=== PATIENT | male | born 2000 | race Caucasian/White ===

== ENCOUNTER 2021-02-25 17:38 | Emergency (ER) | payer OTHER, MEDICAID, SELFPAY ==
[2021-02-25] VITALS (10 sets, daily range): BP systolic 109–160; BP diastolic 61–87; PULSE 45–78; RESP 12–24; TEMP 36.5; O2SAT 94–100
--- NOTE | 2021-02-25 20:52 | ED.ABDPAIN ---
HPI - Abdominal Pain General Chief Complaint: Abdominal Pain Stated Complaint: not feeling well Time Seen by Provider: 02/25/21 20:52 Source: patient Mode of arrival: Wheelchair Limitations: no limitations History of Present Illness HPI narrative: The patient was transferred to [facility] for an abscess near his spine several weeks ago. He was treated surgically and with antibiotics, he was discharged from [facility] 3 weeks ago. He has had persistent diarrhea since discharge from [facility]. He developed nausea and vomiting today. he has not vomited for the last 2 hours. He has no fever, URI symptoms, or cough. He has no abdominal pain. He has no urinary complaints. Related Data Previous Rx's Medication Instructions Recorded ondansetron 4 mg PO Q4H PRN #10 tab 02/25/21 Allergies Allergy/AdvReac Type Severity Reaction Status Date / Time No Known Drug Allergies Allergy Verified 02/25/21 17:50 Review of Systems ENT Ears, Nose, Mouth, and Throat: Denies dizziness, Denies sinus pressure and Denies sore throat Cardiovascular Cardiovascular: Denies chest pain, Denies lightheadedness, Denies dyspnea and Denies dyspnea on exertion Respiratory Respiratory: Denies cough, Denies dyspnea, Denies dyspnea on exertion and Denies wheezing Gastrointestinal Gastrointestinal: Denies abdominal pain, Denies diarrhea, Denies nausea and Denies vomiting Genitourinary Genitourinary: Denies dysuria Genitourinary: Denies dysuria Musculoskeletal Musculoskeletal: Denies back pain, Denies myalgias and Denies numbness Integumentary/Breasts Skin/Breast: Denies rash Neurologic Neurologic: Denies dizziness and Denies numbness Allergic/Immunologic Allergic/Immunologic: Denies wheezing Patient History Medical History (Updated 02/26/21 @ 04:56 by Haris Pena MD) No active medical problems Postoperative intra-abdominal abscess Social History Smoking Status: Current every day smoker Smoking Status: Current every day smoker Substance Use Type: marijuana, heroin and methamphetamine Exam Initial Vital Signs Initial Vital Signs: Vital Signs Pulse Rate 49 L 02/25/21 17:41 Respiratory Rate 22 02/25/21 17:41 Blood Pressure 160/83 H 02/25/21 17:41 Pulse Oximetry 97 02/25/21 17:41 Const General: cooperative, healthy appearing and comfortable [facility] Head: normocephalic and atraumatic Mouth: oral mucosae normal Eyes General: appearance normal, both eyes and all related structures Resp Auscultation: clear to auscultation bilaterally Cardio Rate: regular rate Rhythm: regular rhythm Heart Sounds: S1 normal, S2 normal, no click, no gallops, no murmurs and no rubs Pulses: normal peripheral pulses GI Inspection: non-distended Palpation: soft, no hepatosplenomegaly, No guarding, No pulsatile mass and No tender Auscultation: normal bowel sounds Back/Spine/Pelvis Back: normal to inspection Skin General: no rashes or lesions noted, No jaundice and No petechiae Other: Well-healed incision sites in the abdomen. No evidence infection. Neuro General: patient alert, patient oriented x3, gait normal and no focal motor deficits Speech: speech normal Extrem Other: No edema or calf tenderness. Course Course Course Narrative: The patient's symptoms resolved in the ER. he feels well enough he would prefer to go home, and follow up as an outpatient. Zofran 0 DT has been provided prior to discharge. No further evaluation was done. Orders Ordered: Discontinued Medications Ondansetron HCl (Ondansetron 4 Mg Odt Prepack) 1 bottle [facility] [place] [facility] ONE Stop: 02/25/21 21:01 Last Admin: 02/25/21 21:40 Dose: 1 bottle Documented by: GURWINDER Vital Signs Vital signs: Vital Signs - 8 hr 02/25/21 21:00 02/25/21 21:30 Pulse Rate 63 66 Respiratory Rate 24 20 Blood Pressure 121/70 114/62 Pulse Oximetry 99 100 Discharge Plan Departure Patient Disposition: Home Clinical Impression: Moderate nausea and vomiting Instructions: DI for Nausea -- Adult Activity Restrictions/Additional Instructions: Zofran 0 DT every 4 hours as needed for nausea. You should be on a bland diet, drink plenty of fluids. If symptoms increase, return the ER. If you have persistent diarrhea, you should follow-up in a local walk-in clinic, Urgent Care, or return here if necessary. Prescriptions: New ondansetron 4 mg tablet,disintegrating 4 mg PO Q4H PRN (Reason: nausea and vomiting) Qty: 10 RF: 0
[2021-02-25] MEDS: ONDANSETRON 4 MG ODT PREPACK 1 BOTTLE MISC (21:40)
== END 2021-02-25 21:50 | disposition home or self-care (01) ==
LOC: ED 22:00
PROVIDERS: Emergency Provider Emergency Medicine
DX: R11.2 Nausea with vomiting, unspecified (principal)
CPT/HCPCS: 36415; 99283

== ENCOUNTER 2021-03-14 15:00 | Emergency (ER) | payer OTHER, MEDICAID, SELFPAY ==
[2021-03-14 15:16] VITALS: BP 122/77; PULSE 68; RESP 18; TEMP 36.9; O2SAT 100; BMI 20.4
== END 2021-03-14 18:26 | disposition left against medical advice (07) ==
PROVIDERS: Emergency Provider Emergency Medicine
DX: H57.12 Ocular pain, left eye (principal)
CPT/HCPCS: 99281